=== PATIENT | female | born 1985 | race Caucasian/White ===

== ENCOUNTER 2017-07-28 11:24 | Emergency (ER) | payer OTHER ==
[2017-07-28] MEDS ORDERED: Sodium Chloride 0.9% 1000 ML 1,000 ML IV STA (11:42)
[2017-07-28] MEDS ORDERED: Phenergan 25 MG INJ IM ONE (11:42)
--- NOTE | 2017-07-28 11:49 | ERPHSYRPT ---
- History of Present Illness Time Seen by Provider: 07/28/17 11:39 Historian: patient Patient Subjective Stated Complaint: PT STATES THAT SHE HAS HAD VOMITING AND DIARRHEA. SINCE MONDAY STATES HAS ALSO HAD FEVER OF 102 STATES. SHE WAS PUT ON Z PACK A FEW WEEKS AGO FOR PNEUMONIA. AND RECENLTY HAD THE FLU A FEW WEEKS AGO. STATES. SHE HASNT BEEN ABLE TO KEEP ANYTHING DOWN. Triage Nursing Assessment: PT ALERT WARM ADN DRY RESP EASY NON LABORED PT. AMBULATED TO ROOM WITHOUT DIFFICULTY DRY MUCUS. MEMBRANES NOTED. Physician History: CC: vomiting/diarrhea Hx: 31 y/o patient of Dr Garcia. She has several day hx of vomiting and diarrhea. She has cramping abdominal discomfort. She irregular mentrual bleeding. Has had some fever/chills. She was treated for pneumonia 3 weeks ago with zithromax. She feels tired and dizzy when up. Severity of Pain-Max: moderate Severity of Pain-Current: moderate Allergies/Adverse Reactions: No Known Drug Allergies Allergy (Verified 06/29/16 10:17) Hx Tetanus, Diphtheria Vaccination/Date Given: Yes Hx Influenza Vaccination/Date Given: No Hx Pneumococcal Vaccination/Date Given: No Immunizations Up to Date: Yes - Review of Systems Constitutional: Fever, Chills, Fatigue, Malaise, Weakness Eyes: No Symptoms Ears, Nose, & Throat: No Symptoms, Throat Pain Respiratory: No Cough, No Dyspnea Cardiac: No Chest Pain Abdominal/Gastrointestinal: Abdominal Pain (cramping), Nausea, Vomiting, Diarrhea Genitourinary Symptoms: No Dysuria, No Musculoskeletal: Myalgias Skin: No Rash Neurological: No Focal Weakness, No Headache, No Parasthesia All Other Systems: Reviewed and Negative - Past Medical History Pertinent Past Medical History: Yes Neurological History: No Pertinent History ENT History: No Pertinent History Cardiac History: No Pertinent History Respiratory History: No Pertinent History Endocrine Medical History: No Pertinent History Musculoskeletal History: Other GI Medical History: No Pertinent History History: No Pertinent History Psycho-Social History: Anxiety, Depression Female Reproductive Disorders: No Pertinent History Other Medical History: POLYCYSTIC OVARIES - Past Surgical History Past Surgical History: No Neuro Surgical History: No Pertinent History Cardiac: No Pertinent History Respiratory: No Pertinent History Gastrointestinal: No Pertinent History Genitourinary: No Pertinent History Musculoskeletal: No Pertinent History Female Surgical History: No Pertinent History - Social History Smoking Status: Current every day smoker How long have you smoked: 10 YEARS Exposure to second hand smoke: Yes Drug Use: none Patient Lives Alone: No - Female History Hx Last Menstrual Period: 1 WEEK AGO Hx Now: (HCG pending) - Nursing Vital Signs Nursing Vital Signs: Initial Vital Signs Temperature 97.7 F 07/28/17 11:32 Pulse Rate 127 H 07/28/17 11:32 Respiratory Rate 18 07/28/17 11:32 Blood Pressure 126/77 07/28/17 11:32 O2 Sat by Pulse Oximetry 100 07/28/17 11:32 Pain Scale Pain Intensity 1 - Physical Exam General Appearance: alert Eye Exam: PERRL/EOMI Ears, Nose, Throat Exam: dry mucous membranes, No tonsillar exudate Neck Exam: normal inspection, non-tender, supple Respiratory Exam: normal breath sounds, lungs clear Cardiovascular Exam: regular rate/rhythm, tachycardia, No murmur Gastrointestinal/Abdomen Exam: soft, No tenderness, No distention, No mass, No guarding Back Exam: normal inspection, normal range of motion Extremity Exam: normal inspection, normal range of motion Neurologic Exam: alert, oriented x 3, cooperative, chief relay tester II-XII nml as tested, sensation nml, No motor deficits Skin Exam: warm, dry, No rash SpO2 Interpretation: normal SpO2: 100 Oxygen Delivery: Room Air - Course Nursing assessment & vital signs reviewed: Yes EKG Interpreted by Me: RATE - Radiology Exams AAS X-ray Interpretation: Teleradiologist Report, Negative Ordered Tests: Active Orders 24 hr Category Date Time Status Cath for Specimen-Straight STAT Care 07/28/17 11:43 Active IV Insertion STAT Care 07/28/17 11:42 Active OBSTR/ACUTE ABDOMEN SERIES Stat Exams 07/28/17 11:42 Completed CBC W DIFF Stat Lab 07/28/17 11:56 Completed CMP Stat Lab 07/28/17 11:56 Completed CULTURE, THROAT Stat Lab 07/28/17 11:56 Received HCG QUALITATIVE,SERUM Stat Lab 07/28/17 11:56 Completed LIPASE Stat Lab 07/28/17 11:56 Completed Lactic Acid Stat Lab 07/28/17 11:42 Completed Manual Differential NC Stat Lab 07/28/17 11:56 Completed STREP SCREEN-BETA A Stat Lab 07/28/17 11:56 Completed UA W/RFX UR CULTURE Stat Lab 07/28/17 11:56 Completed Medication Summary Discontinued Medications Generic Name Dose Route Start Last Admin Trade Name Crow PRN Reason Stop Dose Admin Sodium Chloride 1,000 mls @ 999 mls/hr 07/28/17 11:42 07/28/17 11:55 Sodium Chloride 0.9% 1000 Ml IV 07/28/17 12:42 999 mls/hr .Q1H1M STA Administration Sodium Chloride Confirm 07/28/17 11:51 Sodium Chloride 0.9% 1000 Ml Administered 07/28/17 11:52 Dose 1,000 mls @ ud .ROUTE .STK-MED ONE Promethazine HCl 25 mg 07/28/17 11:42 07/28/17 11:55 Phenergan 25 Mg Inj IM 07/28/17 11:43 25 mg STAT ONE Administration Promethazine HCl Confirm 07/28/17 11:51 Phenergan 25 Mg Inj Administered 07/28/17 11:52 Dose 25 mg .ROUTE .STK-MED ONE Lab/Rad Data: Laboratory Result Diagrams 07/28/17 11:56 07/28/17 11:56 Laboratory Results 07/28/17 07/28/17 07/28/17 Range/Units 11:56 11:56 11:56 WBC (4.0-10.5) K/mm3 RBC (4.1-5.4) M/mm3 Hgb (12.0-16.0) gm/dl Hct (35-47) % MCV (78-100) fl MCH (26-32) pg MCHC (32-36) g/dl RDW (11.5-14.0) % Plt Count (150-450) K/mm3 MPV (6-9.5) fl Segmented Neutrophils (36.0-66.0) % Band Neutrophils (0.0-2.0) % Lymphocytes (Manual) (24-44) % Monocytes (Manual) (0.0-12.0) % Eosinophils (Manual) (0.00-3.0) % Differential Comment Platelet Estimate (NORMAL) Sodium 137 (136-145) mEq/L Potassium 4.0 (3.5-5.1) mEq/L Chloride 104 (98-107) mEq/L Carbon Dioxide 24.2 (21-32) mEq/L Anion Gap 13.0 (5-15) MEQ/L BUN 9 (9-20) mg/dL Creatinine 1.23 (0.55-1.30) mg/dl Estimated GFR 54 ML/MIN Glucose 99 (70-110) MG/DL Lactic Acid (0.4-2.0) Calcium 9.0 (8.5-10.1) mg/dL Total Bilirubin 0.20 (0.2-1.0) mg/dL AST 28 (15-37) U/L ALT 26 (12-78) U/L Alkaline Phosphatase 81 (46-116) U/L Serum Total Protein 7.8 (6.4-8.2) gm/dL Albumin 3.7 (3.4-5.0) g/dL Lipase 222 (73-393) U/L Serum , Qual NEGATIVE (Negative) Ur Collection Type Urine Color (YELLOW) Urine Appearance (CLEAR) Urine pH (5-6) Ur Specific [place] (1.005-1.025) Urine Protein (Negative) Urine Ketones (NEGATIVE) Urine Blood (0-5) Josue/ul Urine Nitrite (NEGATIVE) Urine Bilirubin (NEGATIVE) Urine Urobilinogen (0-1) mg/dL Ur Leukocyte Esterase (NEGATIVE) Urine Culture Reflexed (NO) Urine Glucose (NEGATIVE) mg/dL Streptococcus Screen NEGATIVE (Negative) Specimen Received 07/28/17 07/28/17 07/28/17 Range/Units 11:56 11:56 11:42 WBC 11.1 H (4.0-10.5) K/mm3 RBC 4.73 (4.1-5.4) M/mm3 Hgb 14.2 (12.0-16.0) gm/dl Hct 43.4 (35-47) % MCV 91.8 (78-100) fl MCH 30.0 (26-32) pg MCHC 32.7 (32-36) g/dl RDW 13.4 (11.5-14.0) % Plt Count 374 (150-450) K/mm3 MPV 10.0 H (6-9.5) fl Segmented Neutrophils 62 (36.0-66.0) % Band Neutrophils 1 (0.0-2.0) % Lymphocytes (Manual) 25 (24-44) % Monocytes (Manual) 6 (0.0-12.0) % Eosinophils (Manual) 6 H (0.00-3.0) % Differential Comment NORMAL Platelet Estimate NORMAL (NORMAL) Sodium (136-145) mEq/L Potassium (3.5-5.1) mEq/L Chloride (98-107) mEq/L Carbon Dioxide (21-32) mEq/L Anion Gap (5-15) MEQ/L BUN (9-20) mg/dL Creatinine (0.55-1.30) mg/dl Estimated GFR ML/MIN Glucose (70-110) MG/DL Lactic Acid 1.6 (0.4-2.0) Calcium (8.5-10.1) mg/dL Total Bilirubin (0.2-1.0) mg/dL AST (15-37) U/L ALT (12-78) U/L Alkaline Phosphatase (46-116) U/L Serum Total Protein (6.4-8.2) gm/dL Albumin (3.4-5.0) g/dL Lipase (73-393) U/L Serum , Qual (Negative) Ur Collection Type CATH Urine Color LT.YELLOW (YELLOW) Urine Appearance CLEAR (CLEAR) Urine pH 5.0 (5-6) Ur Specific [place] 1.010 (1.005-1.025) Urine Protein NEGATIVE (Negative) Urine Ketones NEGATIVE (NEGATIVE) Urine Blood NEGATIVE (0-5) Josue/ul Urine Nitrite NEGATIVE (NEGATIVE) Urine Bilirubin NEGATIVE (NEGATIVE) Urine Urobilinogen NORMAL (0-1) mg/dL Ur Leukocyte Esterase NEGATIVE (NEGATIVE) Urine Culture Reflexed NO (NO) Urine Glucose NEGATIVE (NEGATIVE) mg/dL Streptococcus Screen (Negative) Specimen Received 07/28/17 1200 - Progress Progress Note: 07/28/17 12:56 HR better after IVF. No vomiting. Labs reassuring. Advised fluids. She will try zofran ODT at home. Advised follow up with Dr Garcia. Instr given. Abd soft and NT. Counseled pt/family regarding: lab results, diagnosis, need for follow-up, rad results - Departure Time of Disposition: 12:57 Departure Disposition: Home Clinical Impression: Vomiting and diarrhea Condition: Stable Critical Care Time: No Referrals: PHILLIP GARCIA [Primary Care Provider] - Instructions: Vomiting -- Adult, Diarrhea and Traveler's Diarrhea -- Adult Additional Instructions: ABDOMINAL PAIN 1. There are several different causes for abdominal pain, some of which may not be able to be identified on initial examination. 2. The important thing to remember is that bodily functions can change in a short period of time. If you notice any of the following symptoms, return to the emergency department or consult your doctor immediately: A. Worsening pain or no improvement in the next 12 hours. B. Increasing, severe abdominal pain C. Blood in stool D. Black stools E. Persistent vomiting F. Fever or chills or other symptoms VOMITING AND DIARRHEA 1. Take only small amounts of clear, cool liquids at frequent intervals as tolerated for the next 24-48 hours. Avoid milk products and orange juice. Clear liquids are those liquids which you can see through. 2. Pedialyte and popsicles are recommended clear liquids. 3. If the condition worsens you should contact your family physician or return to the emergency department for re-evaluation. Rx zofran as needed for nausea/vomiting- sent to [facility]. Drink plenty of fluids. Follow up with Dr Garcia Monday. Return for problems or concerns. No driving or operating machinery today. Prescriptions: Ondansetron ODT 4 MG [Zofran Odt 4 mg] 1 tab PO Q6H PRN PRN #10 tab.rapdis PRN Reason: Nausea/Vomiting
[2017-07-28] MEDS ORDERED: Phenergan 25 MG INJ ONE (11:51)
[2017-07-28] MEDS ORDERED: Sodium Chloride 0.9% 1000 ML 1,000 ML ONE (11:51)
[2017-07-28 12:08] LABS: Hematocrit 43.4 % (35-47); Hemoglobin 14.2 gm/dl (12.0-16.0); Mean Cell Volume 91.8 fl (78-100); Mean Corpuscular Hgb Concent. 32.7 g/dl (32-36); Platelet Count 374 K/mm3 (150-450); Red Blood Count 4.73 M/mm3 (4.1-5.4); Red Cell Distribution Width 13.4 % (11.5-14.0); White Blood Count 11.1 K/mm3 (4.0-10.5)
[2017-07-28 12:10] LABS: Appearance CLEAR (CLEAR); Bilirubin NEGATIVE (NEGATIVE); Blood NEGATIVE Ery/ul (0-5); Glucose NEGATIVE (NEGATIVE); Ketones NEGATIVE (NEGATIVE); Leukocyte Esterase NEGATIVE (NEGATIVE); Nitrite NEGATIVE (NEGATIVE); Protein,Urine Dip NEGATIVE (Negative); Urobilinogen NORMAL mg/dL (0-1)
[2017-07-28 12:31] LABS: BAND 1 % (0.0-2.0); Eosinophil 6 % (0.00-3.0); Lymphocytes 25 % (24-44); Monocyte 6 % (0.0-12.0); Neutrophils 62 % (36.0-66.0); Platelet Estimate NORMAL (NORMAL); Total Cells Counted 100
[2017-07-28 12:38] LABS: ALBUMIN 3.7 g/dL (3.4-5.0); BILIRUBIN,TOTAL 0.2 mg/dL (0.2-1.0); Carbon Dioxide 24.2 mEq/L (21-32); Creatinine 1 1.23 mg/dl (0.55-1.30); Total Protein 7.8 gm/dL (6.4-8.2)
--- NOTE | 2017-07-28 12:40 | XRAY ---
Indication: Vomiting and diarrhea 5 days. Fever and cough. Comparison: None 2 views of the abdomen nonacute and nonobstructed. Solid organs and osseous structures unremarkable. Single PA chest demonstrates normal heart, lungs, and bony thorax. Impression: Negative abdomen. Normal 1 view chest.
[2017-07-28 12:56] VITALS: O2SAT 100
[2017-07-28 13:08] VITALS: BP 120/76; PULSE 90
== END 2017-07-28 13:16 | disposition home or self-care (01) ==
LOC: ED 11:24
DX: R19.7 Diarrhea, unspecified (principal); R11.10 Vomiting, unspecified; R42 Dizziness and giddiness; R53.83 Other fatigue
CPT/HCPCS: 36000; 36415; 74022; 80053; 81002; 83605; 83690; 84703; 85025; 87070; 87430; 96360; 96372; 99284; J2550; P9612